=== PATIENT | female | born 1955 | race Caucasian/White ===

== ENCOUNTER 2016-11-03 09:26 | Emergency (ER) | payer OTHER ==
[2016-11-03 09:33] VITALS: BP 129/81; PULSE 86; RESP 16; TEMP 97.7; O2SAT 95
--- NOTE | 2016-11-03 10:00 | EDPHY ---
H & P Time Seen by Provider: 11/03/16 09:42 HPI/ROS: CHIEF COMPLAINT: Right knee pain HISTORY OF PRESENT ILLNESS: 61-year-old female with no prior history of knee injury states that while at work yesterday, getting out of a vehicle she felt a "pop" and experienced immediate pain in her medial posterior knee. Pain continues. She is able to bear weight albeit with pain and with subjective instability. No direct trauma or fall. No paresthesia. PRIMARY CARE PROVIDER:worker's compensation REVIEW OF SYSTEMS: A ten point review of systems was performed and is negative with the exception of the items mentioned in the HPI PHYSICAL EXAM (Prior to examination, patient consented to physical exam, hands were washed and my usual and customary physical exam procedures followed) 1) GENERAL: Well-developed, well-nourished, alert and oriented. Appears to be in no acute distress. 2) HEAD: Normocephalic 3) HEENT: Pupils equal, round, reactive to light bilaterally. 4) LUNGS: Breathing comfortably. 5) MUSCULOSKELETAL: Exam of the right knee shows no discoloration. No edema. No effusion. . Tender to palpation posteromedial aspect of the right knee. Compartments are soft. Full flexion. Full extension albeit with pain. No gross instability. 6) SKIN: intact 7) VASCULAR: DP,PT pulses and cap refill present and brisk distally DIFFERENTIAL DIAGNOSIS: in no particular order including but not limited to fracture, sprain, compartment syndrome, septic arthritis, DVT MEDICAL DECISION MAKING Serial evaluations performed on patient. I discussed the limitations of x-ray in diagnosis of knee pain and injury. At this time I do not think that emergent MRI is currently indicated. However, I have recommended follow-up with Orthopedic surgery and provided this referral information. Informed the patient that outpatient MRI may be indicated. Doubt septic arthritis. Doubt compartment syndrome. Doubt DVT. Smoking Status: Light smoker Constitutional: Initial Vital Signs Temperature (C) 36.5 C 11/03/16 09:31 Heart Rate 86 11/03/16 09:31 Respiratory Rate 16 11/03/16 09:31 Blood Pressure 129/81 H 11/03/16 09:31 O2 Sat (%) 95 11/03/16 09:31 O2 Delivery Mode Room Air Allergies/Adverse Reactions: codeine Allergy (Verified 04/06/16 12:47) Home Medications: Medication Instructions Recorded Fosamax 01/20/15 Prednisone 01/20/15 Synthroid 01/20/15 Triamterene 01/20/15 Fluticasone Furoate 04/06/16 Hydrocodone/APAP 5/325 [Burton 1 tab PO Q6 PRN #7 tab 11/03/16 5/325 (RX)] MDM/Departure - MDM Diagnostics: Imaging Impressions Knee X-Ray 11/03/16 09:58 Impression: Anatomy that might predispose this patient to a patellar tracking abnormality and chondromalacia. If symptoms persist, consider knee MRI. Images reviewed by myself Procedures: Procedure: Splint An Cruz wrap splint was applied by ER equipment service technician. After application of the splint I returned and re-examined the patient. - Depart Disposition: Home, Routine, Self-Care Clinical Impression: Right knee sprain Qualifiers: Encounter type: initial encounter Involved ligament of knee: unspecified ligament Qualified Code(s): S83.91XA - Sprain of unspecified site of right knee , initial encounter Condition: Good Instructions: Knee Sprain (ED) Additional Instructions: Return to the ER immediately if you experience discoloration, have worsening pain, numbness, tingling, or any other symptoms that concern you. If you received x-rays in the emergency department today, be advised, that ligamentous , tendon, muscular, and other non-bony injury cannot be fully ruled out. Try to keep your affected extremity elevated above the level of your chest, and keep cold packs on the affected area, for the next 48 hours. Stand Alone Forms: Work Limited Duty Prescriptions: Hydrocodone/APAP 5/325 [Burton 5/325 (RX)] 1 tab PO Q6 PRN #7 tab PRN Reason: Pain, Severe Referrals: Tadeo Sharpe MD [Medical Doctor] - 2-3 days, call for appt. (Dr. Tadeo santana is an orthopedic surgeon)
== END 2016-11-03 10:50 | disposition home or self-care (01) ==
DX: S83.91XA Sprain of unspecified site of right knee, initial encounter (principal); F17.200 Nicotine dependence, unspecified, uncomplicated; X58.XXXA Exposure to other specified factors, initial encounter

== ENCOUNTER → 2016-12-17 | Outpatient (CLI) | payer OTHER | LOC: BMCIMAGING 09:38 | PROVIDERS: ATTEND Internal Medicine Rheumatology | DX: Z13.820 Encounter for screening for osteoporosis (principal); M85.80 Other specified disorders of bone density and structure, unspecified site ==